=== PATIENT | male | born 1970 | race Caucasian/White ===

== ENCOUNTER 2017-06-20 11:04 | Day surgery (SDC) | payer OTHER ==
[2017-06-20] MEDS ORDERED: NS 1,000 ML IV ONE (11:08)
[2017-06-20] MEDS ORDERED: LIDOCAINE 1% 300 MG/30 ML SDV ONE (11:47)
[2017-06-20] MEDS ORDERED: fentaNYL 100 MCG/2 ML INJ ONE (11:48)
[2017-06-20] MEDS ORDERED: MIDAZOLAM 2 MG/2 ML VIAL ONE (11:48)
[2017-06-20] MEDS ORDERED: LIDO/EPI 1% **for epidural** 30 ML SDV ONE (11:49)
[2017-06-20] MEDS ORDERED: BUPIVACAINE 0.5% 30 ML SDV ONE (11:49)
--- NOTE | 2017-06-20 11:49 | PDGENHP ---
History & Physical Chief Complaint: syncope History of Present Illness: syncope in past Relevant Physical Exam: s1s2 rrr. cta a\o x 3 Cardiorespiratory Assessment: LINQ explant
--- NOTE | 2017-06-20 11:49 | PDPROPOC ---
Sedation Plan of Care Sedation Plan of Care: vital signs stable, mental status noted, patient educated of risks, benefits, alternatives, patient can tolerate sedation ASA Classification: ASA 1 Mallampati Score: Class 1 Mallampati Reference Image: Patient passed 3-3-2 rule?: Yes
--- NOTE | 2017-06-20 22:29 | CPR ---
[f rep st] NONINVASIVE CARDIAC PROCEDURE REPORT PROCEDURE PERFORMED: LINQ monitor removal. SEDATION: None, per the patient's request. PROCEDURE: Under sterile conditions, an incision was made over the pre-existing LINQ device in the l eft parasternal area, 4th intercostal space. Using blunt and sharp dissection and electrocautery, th e port pocket was extended to the LINQ device and the LINQ device was easily extracted. The wound wa s closed with 3 erik. There were no complications. /[id number]/MODL
== END 2017-06-20 12:51 | disposition home or self-care (01) ==
LOC: FCATH 11:04
PROVIDERS: ATTEND Internal Medicine Cardiovascular Disease
PROC: 0JPT02Z Removal of Monitoring Device from Trunk Subcutaneous Tissue and Fascia, Open Approach (ICD-10-PCS; principal; 2017-06-20)
DX: R55 Syncope and collapse (principal); I48.91 Unspecified atrial fibrillation
CPT/HCPCS: J2250; J3010